=== PATIENT | female | born 1995 | race Caucasian/White ===

== ENCOUNTER 2016-12-11 20:09 | Emergency (ER) | payer OTHER ==
[2016-12-11 21:24] VITALS: BP 124/74
== END 2016-12-11 21:24 | disposition home or self-care (01) ==
LOC: ED 20:09
DX: S80.861A Insect bite (nonvenomous), right lower leg, initial encounter (principal); L03.115 Cellulitis of right lower limb; W57.XXXA Bitten or stung by nonvenomous insect and other nonvenomous arthropods, initial encounter; Y93.89 Activity, other specified; Y99.8 Other external cause status; Y92.89 Other specified places as the place of occurrence of the external cause
CPT/HCPCS: J1885; J3490

== ENCOUNTER 2020-05-19 19:36 | Emergency (ER) | payer OTHER ==
[~2020-05-19] VITALS: Ht 157.5 cm; Wt 59.0 kg
[2020-05-19 19:42] VITALS: BP 126/88; Ht 157.5 cm; Wt 59.0 kg
== END 2020-05-19 21:16 | disposition home or self-care (01) ==
LOC: ED 19:36
DX: S61.432A Puncture wound without foreign body of left hand, initial encounter (principal); W45.8XXA Other foreign body or object entering through skin, initial encounter; Y93.89 Activity, other specified; Y92.89 Other specified places as the place of occurrence of the external cause; Y99.8 Other external cause status
CPT/HCPCS: J1885; J2001

== ENCOUNTER 2020-05-21 11:41 | Emergency (ER) | payer OTHER ==
[~2020-05-21] VITALS: Ht 157.5 cm; Wt 61.2 kg
[2020-05-21 11:49] VITALS: BP 120/72; Ht 157.5 cm; Wt 61.2 kg
== END 2020-05-21 13:02 | disposition home or self-care (01) ==
LOC: ED 11:41
DX: S61.412D Laceration without foreign body of left hand, subsequent encounter (principal); X58.XXXD Exposure to other specified factors, subsequent encounter

== ENCOUNTER 2020-05-24 09:08 | Emergency (ER) | payer OTHER ==
[~2020-05-24] VITALS: Ht 157.5 cm; Wt 60.3 kg
[2020-05-24 09:16] VITALS: BP 118/71; Ht 157.5 cm; Wt 60.3 kg
== END 2020-05-24 09:39 | disposition home or self-care (01) ==
LOC: ED 09:08
DX: S61.412D Laceration without foreign body of left hand, subsequent encounter (principal); W45.8XXD Other foreign body or object entering through skin, subsequent encounter